=== PATIENT | male | born 1985 | race Caucasian/White ===

== ENCOUNTER 2019-11-02 01:36 | Emergency (ER) | payer OTHER ==
[~2019-11-02] VITALS: Ht 12.7 cm; Wt 186.4 kg
[2019-11-02] MEDS ORDERED: ketorolac trometh inj. 60 MG/2 ML VIAL IM ONE (02:05)
[2019-11-02] MEDS ORDERED: HYDROcodone/acetaminophen 5mg/325mg tablet PO ONE (02:05)
--- NOTE | 2019-11-02 02:22 | NUR ---
AKIN WRP LEFT FOOT CRUTCH INSTRUCTION GIVEN ASKING FOR DILAUDID
[2019-11-02] MEDS ORDERED: HYDR-3965 PO (02:26)
--- NOTE | 2019-11-02 02:30 | NUR ---
SPOKE TO dR Beckford REGARDING NEED FOR RX PAIN MEDICATION. DR BECKFORD BACK TO BEDSIDE EXPALINED AVULSION FX TO PATIENT AND RX GIVEN FOR ANALGESIA. ART AGREED TO [facility] HOME
[2019-11-02 02:38] VITALS: BP 138/86
== END 2019-11-02 02:30 | disposition home or self-care (01) ==
LOC: ER 01:37
DX: S93.402A Sprain of unspecified ligament of left ankle, initial encounter (principal); I10 Essential (primary) hypertension; Z79.899 Other long term (current) drug therapy; X58.XXXA Exposure to other specified factors, initial encounter; Y93.39 Activity, other involving climbing, rappelling and jumping off; Y92.89 Other specified places as the place of occurrence of the external cause; Y99.8 Other external cause status
CPT/HCPCS: 73610; 96372; 99284; J1885

== ENCOUNTER 2023-02-13 13:36 | Emergency (ER) | payer OTHER ==
[~2023-02-13] VITALS: Ht 182.9 cm; Wt 131.8 kg
[2023-02-13 14:09] VITALS: BP 189/101
== END 2023-02-13 18:38 ==
LOC: ER 13:36
DX: F10.129 Alcohol abuse with intoxication, unspecified; I10 Essential (primary) hypertension; Y90.9 Presence of alcohol in blood, level not specified
CPT/HCPCS: 99283